=== PATIENT | female | born 1950 | race Caucasian/White ===

== ENCOUNTER 2016-11-20 07:03 | Inpatient (IN) | payer BC, OTHER ==
--- NOTE | 2016-11-16 17:50 | PREOPHP ---
DATE OF ADMISSION: 11/20/2016 This patient is being admitted electively by Dr. Primitivo Turk on 11/20/2016. HISTORY OF PRESENT ILLNESS: This 66-year-old female is having low back pain that is radiating down both legs, more on the right with some tingling. The patient was injured at work in 2004. She did undergo a laminectomy in 2009 and then a lumbar cyst was removed in 2014. She is being scheduled to have a spinal fusion because she continues to have pain. The patient was seen by me initially on 11/14/2016. At that time, she had an elevated blood pressure of 160/80. I did start the patient on Benicar 20 mg a day. The patient returned in followup on 11/16/2016. Her blood pressure was still elevated, so I increased the Benicar to 40 mg a day. CURRENT MEDICATIONS: Include the followin. Levothyroxine 150 mcg a day. 2. Tizanidine 4 mg 1 pill in the morning, 1/2 at bedtime. 3. Tramadol 50 mg as needed for pain. 4. Hydroxychloroquine 200 mg twice a day. 5. Mycophenolate 250 mg a day. 6. Atorvastatin 20 mg a day. 7. Azathioprine 50 mg a day. 8. Cymbalta 120 mg a day. 9. Estradiol 1 mg a day. 10. Gabapentin 600 mg in the morning, 800 mg at night. 11. Montelukast 10 mg a day. 12. [place] 10/325 as needed for pain. 13. Omeprazole 20 mg a day. 14. Benicar 40 mg a day PAST MEDICAL HISTORY: Remarkable for rheumatoid arthritis, hypokalemia, hyperlipidemia, fibromyalgia, hypertension. ALLERGIES: 1. LEVAQUIN. 2. PENICILLIN. PAST SURGICAL HISTORY: Appendectomy, right foot surgery, bilateral carpal tunnel syndrome, total abdominal hysterectomy, cervical spine surgery, lumbar spine surgery. FAMILY HISTORY: Both parents are . Mother of heart disease and father of mental illness. SOCIAL HISTORY: The patient is a former smoker, does not drink alcohol. She is disabled. REVIEW OF SYSTEMS: CONSTITUTIONAL: No chills, no weight gain, no loss of appetite, no fever, no weakness, no weight loss, no fatigue. OPHTHALMOLOGIC: Negative. EARS, NOSE AND THROAT: Negative. CARDIORESPIRATORY: She does have a slight cough. She denies any exertional chest pain, chest pressure. GASTROINTESTINAL: Negative. NEUROLOGIC: She does have some numbness and tingling in her right lower extremity. HEMATOLOGIC AND LYMPHATICS: Negative. UROLOGIC: Negative. She denies any prior history of anesthesia complications or bleeding disorder. PHYSICAL EXAMINATION: GENERAL: At this time reveals a well-developed female in no apparent distress. VITAL SIGNS: Temperature 96.9, blood pressure 160/80, pulse of 60. HEENT: Head normocephalic. Eyes: Extraocular muscles intact. Nose and mouth are normal. NECK: Supple. No neck vein distention. LUNGS: Clear to auscultation. HEART: Regular rhythm. No murmurs, gallops or rubs. ABDOMEN: Soft, nontender, no masses or megaly. EXTREMITIES: No peripheral edema. Pedal pulses were 2+ bilaterally. IMPRESSION: This patient is cleared for surgery. I will follow the patient along with you postoperatively. Dictated By: DEEJAY NGUYEN MD ND/LENORA Conf#: [id number] DID#: [id number] CC: PRIMITIVO TURK MD;*EndCC* MTDD
[~2016-11-20] VITALS: Ht 160 cm; Wt 71.0 kg
[2016-11-20] VITALS (26 sets, daily range): BP systolic 97–142; BP diastolic 42–83; PULSE 69–100; RESP 12–18; Ht 160 cm; Wt 71.0 kg
[2016-11-20] MEDS: LACTATED RINGER'S 1,000 ML IV* SCH (06:00)
[~2016-11-20 07:03] MED LIST: AMIL5TAB2 PO; ATOR20TA38 PO; AZAT50TA24 PO; DULO60CA6 PO; ESTR0.5T PO; FERR134T PO; GABA-526 PO; HYDR-762 PO; LEVO125T58 PO; MONT10TA24 PO; OMEP20CA16 PO; TIZA4TAB PO; TRAM50TA2 PO
[2016-11-20] MEDS ORDERED: SULF500T5 PO (07:39)
[2016-11-20] MEDS ORDERED: HYDR200T39 PO (07:40)
[2016-11-20] MEDS ORDERED: SULI200T3 PO (07:40)
[2016-11-20] MEDS ORDERED: MYCO250C3 PO (07:43)
[2016-11-20] MEDS ORDERED: BENA5TAB2 PO (07:45)
[2016-11-20] MEDS ORDERED: CEFAZOLIN 2 GM/50 ML (PMX) 50 ML IVPB SCH (08:30)
--- NOTE | 2016-11-20 09:19 | HPN ---
Date/Time of Note Date/Time of Note DATE: 11/20/16 TIME: 09:19 Interval H&P Admission Note Pt. seen H&P reviewed: No system changes EUGENIO TURK MD Nov 20, 2016 09:19
[2016-11-20] MEDS ORDERED: GELATIN SIZE 100 SPONGE ONE (09:32)
[2016-11-20] MEDS ORDERED: CEFAZOLIN 1 GM INJ ONE ×3 (09:33→15:22)
[2016-11-20] MEDS ORDERED: THROMBIN 5000 UNIT VIAL ONE (09:33)
[2016-11-20] MEDS ORDERED: HEPARIN 1000 UNITS/ML 10 ML INJ ONE (09:33)
[2016-11-20] MEDS ORDERED: BUPIVACAINE 0.25% (MPF) 10 ML 10 ML VIAL ONE (09:33)
[2016-11-20] MEDS ORDERED: MIDAZOLAM 1 MG/ML 2 ML INJ ONE (09:53)
[2016-11-20] MEDS ORDERED: SUCCINYLCHOLINE CHLORIDE 100 MG/5 ML SYG IV ONE (09:53)
[2016-11-20] MEDS ORDERED: FENTAnyl 50 MCG/ML VIAL ONE (09:53)
[2016-11-20] MEDS ORDERED: LIDOCAINE 2% (SDV) 5 ML INJ ONE (09:53)
[2016-11-20] MEDS ORDERED: PROPOFOL 20 ML ONE (09:53)
[2016-11-20] MEDS ORDERED: ROCURONIUM 50 MG INJ ONE ×2 (09:53→12:19)
[2016-11-20] MEDS ORDERED: ONDANSETRON 4 MG INJ ONE (10:39)
[2016-11-20] MEDS ORDERED: FAMOTIDINE 20 MG INJ ONE (10:39)
[2016-11-20] MEDS ORDERED: DEXAMETHASONE 4 MG/ML 1 ML INJ ONE (10:39)
[2016-11-20] MEDS ORDERED: EPHEDrine SULFATE 50 MG/5 ML SYG ONE ×2 (10:46→13:38)
[2016-11-20] MEDS ORDERED: THROMBIN(HUM PLAS)/FIBRINOG/CA 5 ML VIAL TOP ONE (13:34)
[2016-11-20] MEDS ORDERED: NEOSTIGMINE 3 MG/3 ML SYRINGE ONE (15:15)
[2016-11-20] MEDS ORDERED: GLYCOPYRROLATE 0.4 MG INJ ONE (15:15)
[2016-11-20] MEDS ORDERED: HYDROmorphONE 2 MG/ML SYG ONE (15:15)
[2016-11-20] MEDS ORDERED: DIPHENHYDRAMINE 50 MG INJ IV PRN (15:30)
[2016-11-20] MEDS ORDERED: MEPERIDINE 25 MG INJ IV PRN (15:30)
[2016-11-20] MEDS ORDERED: PROCHLORPERAZINE 10 MG INJ IV PRN (15:30)
[2016-11-20] MEDS ORDERED: HYDROmorphONE (0.2 MG/ML) 10ML SYG IV PRN ×3 (15:30)
[2016-11-20] MEDS ORDERED: FENTAnyl 50 MCG/ML VIAL IV PRN ×3 (15:30)
[2016-11-20] MEDS ORDERED: LABETALOL HCL 20MG INJ IV PRN (15:30)
[2016-11-20] MEDS ORDERED: ONDANSETRON 4 MG INJ IV PRN ×2 (15:30→17:00)
[2016-11-20] MEDS ORDERED: hydrALAzine 20 MG INJ IV PRN (15:30)
[2016-11-20] MEDS ORDERED: PHENYLephrine (100 MCG/ML) 5ML SYG ONE (16:06)
--- NOTE | 2016-11-20 16:41 | RADRPT ---
PROCEDURE: Intraoperative imaging of the lumbar spine with fluoroscopy. CLINICAL INDICATION: Back pain. Intraoperative. TECHNIQUE: 7 images of the lumbar spine were obtained in the operating room with an image intensif ier. No radiologist was in attendance. 53.8 seconds of fluoroscopy time was used. COMPARISON: Lumbar spine radiographs dated 11/03/2015. FINDINGS: For the purposes of this report, the last apparent true disc level is considered to be L5-S1. Based on this, the images demonstrate posterior fusion with pedicle screws and connecting rods at L4, L5, S1. IMPRESSION: 1. Intraoperative imaging of the lumbar spine. RPTAT: QQ .Saturnino Rodriguez MD, MD Date Time Electronically viewed and signed by .Saturnino Rodriguez MD, on 11/20/2016 16:41 .R/
[2016-11-20] MEDS ORDERED: AL HYDROX/MG HYDROX/SIMETH 30 ML CUP PO PRN (17:00)
[2016-11-20] MEDS ORDERED: ACETAMINOPHEN 325 MG TAB PO PRN (17:00)
[2016-11-20] MEDS ORDERED: DIPHENHYDRAMINE 50 MG CAP PO PRN (17:00)
[2016-11-20] MEDS ORDERED: NALOXONE (0.4 MG/ML) INJ IV PRN (17:00)
[2016-11-20] MEDS ORDERED: NACL 0.9% 3 ML SYG IV SCH (17:00)
[2016-11-20] MEDS ORDERED: HYDROmorphONE 0.2 MG/ML PCA IV SCH (17:00)
[2016-11-20] MEDS ORDERED: DIAZEPAM 5 MG TAB PO PRN (17:00)
[2016-11-20] MEDS ORDERED: HYDROCODONE/APAP (5/325) TAB PO PRN ×2 (17:00)
[2016-11-20] MEDS ORDERED: BETHANECHOL 25 MG TAB PO PRN (17:00)
[2016-11-20] MEDS ORDERED: TRIMETHOBENZAMIDE 100 MG/ML VIAL IM PRN (17:00)
[2016-11-20] MEDS ORDERED: DIAZEPAM 5 MG/ML SYG IM PRN (17:00)
[2016-11-20] MEDS ORDERED: CEPASTAT LOZENGE MT PRN (17:00)
[2016-11-20] MEDS ORDERED: ZOLPIDEM 5 MG TAB PO PRN (17:00)
[2016-11-20] MEDS ORDERED: PROCHLORPERAZINE 10 MG TAB PO PRN (17:00)
--- NOTE | 2016-11-20 17:02 | OPR ---
Date/Time of Note Date/Time of Note DATE: 11/20/16 TIME: 16:59 Operative Report Preoperative Diagnosis Status post multilevel decompressive laminectomy with foraminal stenosis at L4- 5 on the right and instability. Operation Performed Redo decompressive laminectomy at L4 and L5 Transforaminal lumbar interbody fusion at L4-5 and L5-S1 Revision of scar (12 cm) AP and lateral fluoroscopic imaging Intraoperative nerve monitoring (6 hours) Surgeon: EUGENIO TURK MD loan assistant: KEITH LEMA Anesthesia: general Anesthesiologist: DEMARIO SANTILLAN MD Estimated Blood Loss: other Specimens Disc material from L4-5 and L5-S1 Tubes/Drains 2 medium Hemovac drains employed Complications: None Pt Condition Post Procedure: stable Disposition: PACU Operative\Procedure Findings At surgery, foraminal stenosis at L4-5 with instability was confirmed EUGENIO TURK MD Nov 20, 2016 17:01
--- NOTE | 2016-11-20 19:14 | RADRPT ---
PROCEDURE: XR Chest. CLINICAL INDICATION: Shortness of breath. Postoperative evaluation. TECHNIQUE: A single portable view of the chest was obtained. COMPARISON: None FINDINGS: The cardiomediastinal silhouette is within normal limits. The lungs and pleural spaces are clear. Anterior fusion in the lower cervical spine is incompletely visualized. The soft tissues and osseou s structures are unremarkable. IMPRESSION: No acute cardiopulmonary disease. RPTAT: HPNM Physician Mer Date Time Electronically viewed and signed by Wander Jaime Physician on 11/20/2016 19:13 /
--- NOTE | 2016-11-20 19:15 | OPR ---
DATE OF OPERATION: 11/20/2016 PREOPERATIVE DIAGNOSES: Status post multilevel decompressive laminectomy with foraminal stenosis at L4-L5 on the right, and lumbar instability. POSTOPERATIVE DIAGNOSES: Status post multilevel decompressive laminectomy with foraminal stenosis a t L4-L5 on the right, and lumbar instability. OPERATION PERFORMED: 1. Redo decompressive laminectomy, transforaminal lumbar interbody fusion at L4-L5. 2. Transforaminal lumbar interbody fusion L5-S1. 3. Redo decompressive laminectomy at L4. 4. Redo decompressive laminectomy at L5. 5. Revision of scar (12 cm). 6. AP and lateral intraoperative fluoroscopy. 7. Intraoperative nerve monitoring (6 hours). SURGEON: Primitivo Waller MD OILER BANDER: Micki Dsouza PA-C ANESTHESIA: General endotracheal. ANESTHESIOLOGIST: Florina Cortés MD ESTIMATED BLOOD LOSS: 300 mL -- none replaced. DRAINS: Two medium Hemovac drains employed. COMPLICATIONS: None. PERTINENT HISTORY AND PHYSICAL: This is a 66-year-old female with severe back and lower extremity c omplaints bilaterally, right greater than left, which have been unrelieved by conservative managemen t. She has a pertinent prior history of having undergone a previous multilevel decompressive jj ctomy from L2-L5. Preoperative workup including an MRI of the lumbar spine demonstrated foraminal s tenosis at L4-L5 bilaterally, right greater than left, and translational instability at that level. Treatment options were discussed with the patient, she elected to proceed with surgery. OPERATIVE FINDINGS AT SURGERY: Multilevel spondylosis with multilevel foraminal stenosis at L4-L5 w as confirmed. The baseline intraoperative nerve monitoring revealed a decrease in the L4 potential on the right of 20%, the L5 potential on the right of 30%, the S1 potential on the left of 20%, and the S1 potential on the right of 60%. These all returned to normal at the completion of surgery. OPERATIVE PROCEDURE: With the patient in supine position after satisfactory induction of general en dotracheal anesthesia by Dr. Cortés, the patient was positioned on the Dewayne frame atop the OSI fluor oscopic table. All pressure points were carefully padded. The back was prepped and draped in the u sual sterile fashion. Athrombic pumps were applied to the legs below the knees to prevent venous st asis during and after the procedure. An indwelling Skelton catheter was also placed preoperatively to facilitate bladder drainage during and after the procedure. A 12 cm incision was carried out in the midline through the previous scar, through the skin and subc utaneous tissue to the fascia. Superficial retractors were placed and hemostasis secured with elect rocautery. Throughout the procedure, copious amounts of antibacterial irrigation solution were used to periodically irrigate the wound. The fascia was incised in midline with a hot knife and a disse ction carried out laterally to the facet joints from L4 to the sacrum. The deep retractors were indira obey and deep hemostasis secured with electrocautery. An intraoperative marker film was taken with t he Shashank clamp placed upon the sacrum, this was confirmed on the x-ray. The scar was peeled off of the medial aspect of the facets at L4-L5 and L5-S1 bilaterally, and a subtotal facetectomy carried out bilaterally. The operating microscope then moved into place. Attention was turned to the L5-S1 level where the S1 root was mobilized medially and protected with Renu nerve retractor using microdissection technique. A 15 blade knife was used to cut a rectan gular window in the annulus and posterior longitudinal ligament and multiple degenerative disk fragm ents were harvested with pituitary rongeurs. The Alphatec disk shelia were then inserted into the disk space and sequentially the 6, 7, and subsequently 8 mm shelia were used to abrade the vertebra l endplates. A rasp was then used to augment the removal of cartilaginous endplates at L5-S1. An 8 mm lordotic PEEK cage was then filled with a quarter of a small unit of BMP, and impacted into the disk space after multiple pieces of morselized bone were placed into the anterior aspect of the disk space. Attention was then turned to the L4-L5 level where the identical procedure was carried out. The pedicles of L4, L5 and S1 were then identified, and a 40 mm long x 5.5 mm wide variable angle Alphatec pedicle screw was placed into the pedicles of L4 bilaterally and L5 bilaterally using fluor oscopic guidance in the AP and lateral planes. A 6.5 mm wide x 30 mm long screw was placed into the S1 pedicles bilaterally again using fluoroscopic guidance. After the screws were inserted, they we re tested for electrical isolation and they were all adequate. A 70 mm lordotic ivet was then placed into the tulip heads of the screws after the Dewayne frame was lowered to its most inferior position . The S1 screws were tightened with locking caps, and then sequentially the L5 and L4 screws were t ightened after compressor was applied between the screws. The final AP and lateral fluoroscopic mian ges demonstrated satisfactory positioning of the interbody spacers and the hardware. The anesthesio logist was then asked to perform a Valsalva maneuver at 40 mmHg and no spinal fluid leakage was note d. The wound was then closed in layers over 2 medium Hemovac drains, one below the fascia and one a randolph the fascia using #1 Vicryl Stratafix sutures on the deep paralumbar musculature and deep fascia of the back, 2-0 Vicryl Stratafix sutures on the subcu tissue, and a 4-0 Vicryl subcuticular cosmet ic closing suture on the skin. Dermabond and sterile compressive dressings were applied. The patie nt having tolerated the procedure well was then returned to the supine position onto her bed and ext ubated by Dr. Cortés. She was transported to recovery room in satisfactory condition. At the conclus ion of the procedure, sponge, instrument, and needle counts were all correct. NEED FOR EDUCATION PROGRAM ASSOCIATE: During this spinal surgical procedure, my assistant softball coach was used to retrac t and protect the spinal nerves and dural sac. My assistant softball coach also employed the suction catheters to e vacuate blood from the surgical field to improve visualization of the neural structures. The assista nt was medically necessary to facilitate the completion of the surgery in a safe and expeditious man ner. [facility] [place] regulations, as well as hospital bylaws, preclude the use of non-licensed [facility] care personnel such as operating room technicians, to perform these functions. Throughout the procedure, neural monitoring was carried out by [facility] including EMG, SSEP and MEP monitoring of the L3, L4, L5, and S1 nerve roots bilaterally along with spinal cord potentials. These were interpreted by a neurologist employed by [employer]. Dictated By: PRIMITIVO WALLER MD TM/NTS Conf#: [id number] DID#: [id number] CC: REBEKA LEMA MD;*End*
[2016-11-20] MEDS: CEFAZOLIN 1 GM/50 ML (PMX) 50 ML IVPB SCH (20:07)
[2016-11-20] MEDS: DEXTROSE 5%-0.45% NACL 1,000 ML IV SCH (20:11)
--- NOTE | 2016-11-20 20:22 | CONS ---
DATE OF ADMISSION: 11/20/2016 DATE OF CONSULTATION: TYPE OF CONSULTATION: Medical. Thank you, Dr. Waller, for asking me to participate in medical management of this patient. REASON FOR CONSULTATION: To manage the patient's hypertension, hypothyroidism, rheumatoid arthritis , hyperlipidemia and fibromyalgia. HISTORY OF PRESENT ILLNESS: This 66-year-old female was having low back pain that radiated down bot h legs, more on the right, with some tingling. The patient was injured at work in 2004. She did un dergo a laminectomy in 2009, then a lumbar cyst was removed in 2014. The patient today underwent sp inal fusion at the L4-L5 level and L5-S1 level. There also was a redo of her microdiscectomy. The patient is postop now. She is awake and responsive. The patient denies any chest pain or shortness of breath. The patient denies numbness or tingling in her feet. She does have some incisional low back pain. The patient was seen by me last week in preoperative clearance. The patient's blood pr essure was elevated, and I did start her on Benicar 40 mg a day. The patient is taking the following medications: 1. Levothyroxine 150 mcg a day. 2. Tizanidine 4 mg in the morning and 2 mg at bedtime. 3. Tramadol 50 mg q.6 hours p.r.n. pain. 4. Hydrochloroquine 200 mg twice a day. 5. Mycophenolate 250 mg a day. 6. Atorvastatin 20 mg a day. 7. Azathioprine 50 mg a day. 8. Cymbalta 120 mg a day. 9. Estradiol 1 mg a day. 10. Gabapentin 600 mg in the morning, 800 mg at night. 11. Montelukast 10 mg a day. 12. [place] 10/325 for pain. 13. Omeprazole 20 mg a day. 14. Benicar 40 mg a day. PAST MEDICAL HISTORY: Remarkable for rheumatoid arthritis, hypokalemia, hyperlipidemia, fibromyalgi a and hypertension. ALLERGIES: 1. LEVAQUIN. 2. PENICILLIN. PAST SURGICAL HISTORY: Appendectomy, right foot surgery, bilateral carpal tunnel syndrome, total ab dominal hysterectomy, cervical spine surgery, lumbar spine surgery. FAMILY HISTORY: Both parents are . Mother of heart disease, and father of mental illness. SOCIAL HISTORY: The patient is a former smoker, does not drink alcohol. She is disabled. PHYSICAL EXAMINATION: GENERAL: At this time reveals a well-developed female. No apparent distress. VITAL SIGNS: Her temperature is 98, pulse of 81, respirations 18, blood pressure 132/62, O2 saturat ion 95% on 2 L nasal cannula. HEAD: Normocephalic. EYES: Extraocular muscles intact. NOSE AND MOUTH: Normal. NECK: Supple. No neck vein distention. LUNGS: Clear to auscultation. HEART: Regular rhythm. No murmurs, gallops or rubs. ABDOMEN: Soft, nontender. EXTREMITIES: No peripheral edema. IMPRESSION: This patient is stable after surgery today. Her blood pressure is normal. She has no chest pain or shortness of breath. I will follow the patient and manage her hypertension, rheumatoi d arthritis, hyperlipidemia, fibromyalgia. PLAN: 1. Resume some routine medications. 2. Check labs in the morning. 3. Postop lumbar spine surgery protocol. 4. I will follow the patient along with you. Dictated By: DEEJAY NGUYEN MD, ND/LENORA Conf#: [id number] DID#: [id number]
[2016-11-20] MEDS: HYDROXYCHLOROQUINE 200 MG TAB PO SCH (21:00)
[2016-11-20] MEDS: DULOXETINE 30 MG CAP DR PO SCH (21:01)
[2016-11-20] MEDS: RANITIDINE 150 MG TAB PO SCH (21:01)
[2016-11-20] MEDS: GABAPENTIN 300 MG CAP PO SCH (21:01)
[2016-11-20] MEDS: MONTELUKAST 10 MG TAB PO SCH (21:01)
[2016-11-21 00:02] VITALS: BP 143/65; RESP 18
[2016-11-21] MEDS: CEFAZOLIN 1 GM/50 ML (PMX) 50 ML IVPB SCH ×3 (01:40→11:52)
[2016-11-21] MEDS: DEXTROSE 5%-0.45% NACL 1,000 ML IV SCH ×2 (02:55→06:52)
[2016-11-21 05:05] LABS: ADD SCAN DIFF NO
[2016-11-21 05:11] LABS: BASOPHILS % 0.1 % (0.0-2.0); HEMATOCRIT 34.1 % (37.0-47.0); HEMOGLOBIN 10.6 g/dl (12.0-16.0); LYMPHOCYTES # 1.3 10^3/ul (0.8-2.9); LYMPHOCYTES % 8.7 % (15.0-51.0); MEAN CORPUSCULAR HEMOGLOBIN 29.4 pg (29.0-33.0); MEAN CORPUSCULAR HGB CONC 31.1 g/dl (32.0-37.0); MEAN CORPUSCULAR VOLUME 94.5 fl (82.0-101.0); MEAN PLATELET VOLUME 10.6 fl (7.4-10.4); MONOCYTE # 1.3 10^3/ul (0.3-0.9); MONOCYTES % 9.2 % (0.0-11.0); NEUTROPHIL # 11.9 10^3/ul (1.6-7.5); NEUTROPHILS % 81.6 % (39.0-77.0); PLATELET COUNT 219 10^3/UL (140-415); RED BLOOD COUNT 3.61 10^6/ul (4.20-5.40); RED CELL DISTRIBUTION WIDTH 13.3 % (11.5-14.5); WHITE BLOOD COUNT 14.5 10^3/ul (4.8-10.8)
[2016-11-21 05:20] VITALS: BP 146/76; PULSE 78; RESP 19
[2016-11-21] MEDS: LACTATED RINGER'S 1,000 ML IV* SCH (05:31)
[2016-11-21 05:40] LABS: ALBUMIN 3.2 g/dl (3.3-4.9); ALBUMIN/GLOBULIN RATIO 1.18; BILIRUBIN,INDIRECT 0.2 mg/dl (0-1.1); BILIRUBIN,TOTAL 0.2 mg/dl (0.2-1.3); CALCIUM 7.9 mg/dl (8.4-10.2); CREATININE 0.74 mg/dl (0.44-1.00); POTASSIUM 4.1 mmol/L (3.5-5.1); TOTAL PROTEIN 5.9 g/dl (6.1-8.1)
[2016-11-21] MEDS: PANTOPRAZOLE (EC) 40 MG TAB PO SCH (06:00)
[2016-11-21] MEDS: LEVOTHYROXINE 125 MCG TAB PO SCH (07:20)
--- NOTE | 2016-11-21 07:22 | PN ---
Date/Time of Note Date/Time of Note DATE: 11/21/16 TIME: 07:21 Assessment/Plan Lines/Catheters IV Catheter Type (from Nrs): Saline Lock Skelton in Place (from Nrs): Yes Subjective 24 Hr Interval Summary The patient is postop day #1 following a redo decompressive laminectomy at L4 and L5 and 2 level fusion from L4 to the sacrum. She is afebrile. Her Hemovac output was over 200 cc. Her a.m. lab work is normal exception of a postoperative anemia. I will recheck her labs tomorrow. Neurovascular structures are intact distally. She has a Skelton in place. Physical therapy will mobilize her as tolerated today. I will discontinue her Skelton catheter. Exam/Review of Systems Vital Signs Vitals Vital Signs Date Time Temp Pulse Resp B/P Pulse Ox O2 Delivery O2 Flow Rate FiO2 11/21/16 05:30 19 11/21/16 05:20 98.6 78 146/76 95 Nasal Cannula 2.0 Intake and Output 11/20/16 11/20/16 11/21/16 15:00 23:00 07:00 Intake Total 3800 ml 100 ml 1420 ml Output Total 785 ml 2075 ml Balance 3800 ml -685 ml -655 ml Results Result Diagram: 11/21/16 0420 11/21/16 0420 EUGENIO TURK MD Nov 21, 2016 07:22
[2016-11-21] MEDS ORDERED: BETHANECHOL 25 MG TAB PO PRN (08:00)
[2016-11-21 08:43] VITALS: BP 164/54; RESP 20
[2016-11-21] MEDS: AZATHIOPRINE 50 MG TAB PO SCH (09:00)
[2016-11-21] MEDS: MYCOPHENOLATE 250 MG CAP PO SCH (09:00)
[2016-11-21] MEDS: RANITIDINE 150 MG TAB PO SCH ×2 (09:00→21:32)
[2016-11-21] MEDS: DULOXETINE 30 MG CAP DR PO SCH ×2 (09:00→21:32)
[2016-11-21] MEDS: HYDROXYCHLOROQUINE 200 MG TAB PO SCH ×2 (09:00→21:32)
[2016-11-21] MEDS: GABAPENTIN 300 MG CAP PO SCH ×3 (09:00→21:32)
[2016-11-21] MEDS: ASCORBIC ACID 500 MG TAB PO SCH ×2 (09:00→21:32)
[2016-11-21] MEDS: ESTRADIOL 1 MG TAB PO SCH (09:00)
[2016-11-21] MEDS ORDERED: AMILORIDE 5 MG TAB PO SCH (09:00)
[2016-11-21] MEDS: FERROUS SULFATE (EC) 325 MG TAB PO SCH ×3 (09:00→21:32)
[2016-11-21] MEDS: DOCUSATE SODIUM 100 MG CAP PO SCH ×2 (09:00→21:32)
--- NOTE | 2016-11-21 13:50 | CONS ---
Date/Time of Note Date/Time of Note DATE: 11/21/16 TIME: 13:46 Assessment/Plan Assessment/Plan Chief Complaint/Hosp Course 1. she is one day post op a lumbar spine surgery . 2. BP is elevated . will start Valsartan and stop IV fluids . 3. continue current medication and PT Problems: Consultation Date/Type/Reason Admit Date/Time Nov 20, 2016 at 07:03 Initial Consult Date 24 HR Interval Summary Free Text/Dictation She is feeling better . she is one day post op a lumbar spine surgery . Constitutional: improved, no complaints Exam/Review of Systems Vital Signs Vitals Vital Signs Date Time Temp Pulse Resp B/P Pulse Ox O2 Delivery O2 Flow Rate FiO2 11/21/16 08:50 16 11/21/16 08:43 98.0 77 164/54 98 11/21/16 05:20 Nasal Cannula 2.0 Intake and Output 11/20/16 11/20/16 11/21/16 14:59 22:59 06:59 Intake Total 3800 ml 100 ml 1420 ml Output Total 785 ml 2075 ml Balance 3800 ml -685 ml -655 ml Exam Constitutional: alert, oriented, well developed Psych: nl mood/affect, no complaints Respiratory: clear to auscultation, normal air movement Cardiovascular: regular rate and rhythm Gastrointestinal: soft Musculoskeletal: nl extremities to inspection Results Result Diagram: 11/21/1641911/21/16 0420 Results 24 hrs Laboratory Tests Test 11/21/16 04:20 White Blood Count 14.5 H Red Blood Count 3.61 L Hemoglobin 10.6 L Hematocrit 34.1 L Mean Corpuscular Volume 94.5 Mean Corpuscular Hemoglobin 29.4 Mean Corpuscular Hemoglobin Concent 31.1 L Red Cell Distribution Width 13.3 Platelet Count 219 Mean Platelet Volume 10.6 H Neutrophils % 81.6 H Lymphocytes % 8.7 L Monocytes % 9.2 Eosinophils % 0.0 Basophils % 0.1 Nucleated Red Blood Cells % 0.0 Neutrophils # 11.9 H Lymphocytes # 1.3 Monocytes # 1.3 H Eosinophils # 0.0 Basophils # 0.0 Nucleated Red Blood Cells # 0.0 Sodium Level 136 Potassium Level 4.1 Chloride Level 102 Carbon Dioxide Level 31 Anion Gap 7 L Blood Urea Nitrogen 14 Creatinine 0.74 Glucose Level 132 Calcium Level 7.9 L Total Bilirubin 0.2 Direct Bilirubin 0.00 Indirect Bilirubin 0.2 Aspartate Amino Transf (AST/SGOT) 69 H Alanine Aminotransferase (ALT/SGPT) 29 Alkaline Phosphatase 66 Total Protein 5.9 L Albumin 3.2 L Globulin 2.70 Albumin/Globulin Ratio 1.18 Medications Medications Current Medications Lactated Ringer's 1,000 ml @ 25 mls/hr Q24H IV* ; Start 11/20/16 at 06:00 Dextrose/Sodium Chloride (D5-1/2ns) 1,000 ml @ 100 mls/hr Q10H IV Last administered on 11/21/16 06:52; Admin Dose 100 MLS/HR; Start 11/20/16 at 16:55 Acetaminophen/ Hydrocodone Bitart ([place] (5/325)) 1 tab Q4H PRN PO PAIN LEVEL 1 -5; Start 11/20/16 at 17:00 Acetaminophen/ Hydrocodone Bitart ([place] (5/325)) 2 tab Q4H PRN PO PAIN LEVEL 6 -10 Last administered on 11/21/16 10:31; Admin Dose 2 TAB; Start 11/20/16 at 17 :00 Zolpidem Tartrate (Ambien) 5 mg HS PRN PO INSOMNIA; Start 11/20/16 at 17:00 Prochlorperazine (Compazine) 10 mg Q4H PRN PO NAUSEA AND/OR VOMITING Last administered on 11/21/16 08:45; Admin Dose 10 MG; Start 11/20/16 at 17:00 Trimethobenzamide HCl (Tigan) 200 mg Q4H PRN IM NAUSEA AND/OR VOMITING; Start 11/20/16 at 17:00 Ondansetron HCl (Zofran Inj) 4 mg Q6H PRN IV NAUSEA AND/OR VOMITING Last administered on 11/21/16 03:54; Admin Dose 4 MG; Start 11/20/16 at 17:00 Al Hydrox/Mg Hydrox/Simethicone (Mag-Al Plus) 15 ml Q4H PRN PO CONSTIPATION; Start 11/20/16 at 17:00 Docusate Sodium (Colace) 100 mg BID PO ; Start 11/21/16 at 09:00 Acetaminophen (Tylenol Tab) 650 mg Q4H PRN PO TEMP GREATER THAN 101F OR [place]; Start 11/20/16 at 17:00 Ascorbic Acid (Vitamin C) 1,000 mg BID PO ; Start 11/21/16 at 09:00 Ferrous Sulfate (Ferrous Sulfate (Ec)) 325 mg TID PO ; Start 11/21/16 at 09:00 Ranitidine HCl (Zantac) 150 mg BID PO Last administered on 11/20/16 21:01; Admin Dose 150 MG; Start 11/20/16 at 21:00 Diazepam (Valium) 5 mg Q4H PRN PO MUSCLE SPASMS; Start 11/20/16 at 17:00 Diazepam (Valium) 5 mg Q4H PRN IM MUSCLE SPASMS; Start 11/20/16 at 17:00 Phenol (Cepastat Lozenge) 1 lozenge PRN PRN MT SORE THROAT Last administered on 11/21/16 01:40; Admin Dose 1 LOZENGE; Start 11/20/16 at 17:00 Bethanechol Chloride (Urecholine) 25 mg PRN PRN PO UNABLE TO VOID Last administered on 11/21/16 11:52; Admin Dose 25 MG; Start 11/20/16 at 17:00 Diphenhydramine HCl (Benadryl) 50 mg Q6H PRN PO PRURITUS; Start 11/20/16 at 17: 00 Hydromorphone HCl (Dilaudid HAT CHECKER) Q4PCA IV Last administered on 11/20/16 17:26 ; Admin Dose 6 MG; Start 11/20/16 at 17:00 Naloxone HCl (Narcan) 0.2 mg Q2M PRN IV RR 8 BREATHS/MIN OR LESS; Start at 17:00 Atorvastatin Calcium (Lipitor) 20 mg DAILY@21 PO ; Start 11/21/16 at 21:00 Azathioprine (Imuran) 50 mg DAILY PO ; Start 11/21/16 at 09:00 Duloxetine HCl (Cymbalta) 60 mg BID PO Last administered on 11/20/16 21:01; Admin Dose 60 MG; Start 11/20/16 at 21:00 Gabapentin (Neurontin) 600 mg TID PO Last administered on 11/20/16 21:01; Admin Dose 600 MG; Start 11/20/16 at 21:00 Hydroxychloroquine Sulfate (Plaquenil) 200 mg BID PO ; Start 4/10/17 at 21:00 Montelukast Sodium (Singulair) 10 mg QHS PO Last administered on 11/20/16t 21: 01; Admin Dose 10 MG; Start 11/20/16 at 21:00 Mycophenolate Mofetil (Cellcept) 250 mg DAILY PO ; Start 11/21/16 at 09:00 Estradiol (Estrace) 1 mg DAILY PO ; Start 11/21/16 at 09:00 Pantoprazole (Protonix Tab) 40 mg DAILY@06 PO ; Start 11/21/16 at 06:00 DEEJAY NGUYEN MD Nov 21, 2016 13:50
[2016-11-21] MEDS ORDERED: VALSARTAN 80 MG TAB PO SCH (14:00)
[2016-11-21 14:43] LABS: ADD UMIC YES; URINE BILIRUBIN (Dip) NEGATIVE (NEGATIVE); URINE BLOOD (Dip) 1+ (NEGATIVE); URINE COLOR LT. YELLOW (YELLOW); URINE GLUCOSE (Dip) NEGATIVE (NEGATIVE); URINE KETONES (Dip) NEGATIVE (NEGATIVE); URINE LEUKOCYTE ESTERASE (Dip) NEGATIVE (NEGATIVE); URINE NITRITE (Dip) NEGATIVE (NEGATIVE); URINE TOTAL PROTEIN (Dip) NEGATIVE (NEGATIVE); URINE UROBILINOGEN (Dip) 0.2 E.U./dL (0.1-1.0)
[2016-11-21 15:37] LABS: BACTERIA,URINE OCCASIONAL; MUCUS,URINE FEW; SQUAMOUS EPITHELIAL CELL,UR FEW
[2016-11-21 20:19] VITALS: BP 155/70; RESP 20
[2016-11-21] MEDS ORDERED: ATORVASTATIN 20 MG TAB PO SCH (21:00)
[2016-11-21] MEDS: MONTELUKAST 10 MG TAB PO SCH (21:32)
[2016-11-22 05:00] VITALS: BP 140/65; PULSE 80; RESP 19
[2016-11-22 05:00] LABS: ADD SCAN DIFF NO
[2016-11-22 05:04] LABS: BASOPHIL # 0.1 10^3/ul (0.0-0.1); BASOPHILS % 0.4 % (0.0-2.0); EOSINOPHILS # 0.1 10^3/ul (0.0-0.5); EOSINOPHILS % 0.7 % (0.0-7.0); HEMOGLOBIN 10.3 g/dl (12.0-16.0); LYMPHOCYTES # 1.8 10^3/ul (0.8-2.9); LYMPHOCYTES % 14.6 % (15.0-51.0); MEAN CORPUSCULAR HEMOGLOBIN 29.5 pg (29.0-33.0); MEAN CORPUSCULAR HGB CONC 31.2 g/dl (32.0-37.0); MEAN CORPUSCULAR VOLUME 94.6 fl (82.0-101.0); MEAN PLATELET VOLUME 10.8 fl (7.4-10.4); MONOCYTE # 1.3 10^3/ul (0.3-0.9); MONOCYTES % 10.1 % (0.0-11.0); NEUTROPHIL # 9.3 10^3/ul (1.6-7.5); PLATELET COUNT 215 10^3/UL (140-415); RED BLOOD COUNT 3.49 10^6/ul (4.20-5.40); RED CELL DISTRIBUTION WIDTH 13.4 % (11.5-14.5); WHITE BLOOD COUNT 12.5 10^3/ul (4.8-10.8)
[2016-11-22 05:24] LABS: ALBUMIN 3.2 g/dl (3.3-4.9); POTASSIUM 3.2 mmol/L (3.5-5.1)
[2016-11-22 05:26] LABS: CREATININE 0.6 mg/dl (0.44-1.00)
[2016-11-22 05:27] LABS: ALBUMIN/GLOBULIN RATIO 1.06; BILIRUBIN,INDIRECT 0.2 mg/dl (0-1.1); BILIRUBIN,TOTAL 0.2 mg/dl (0.2-1.3); CALCIUM 8.6 mg/dl (8.4-10.2); TOTAL PROTEIN 6.2 g/dl (6.1-8.1)
[2016-11-22] MEDS: LACTATED RINGER'S 1,000 ML IV* SCH (05:40)
[2016-11-22] MEDS: PANTOPRAZOLE (EC) 40 MG TAB PO SCH (05:40)
--- NOTE | 2016-11-22 07:02 | PN ---
Date/Time of Note Date/Time of Note DATE: 11/22/16 TIME: 07:01 Assessment/Plan Lines/Catheters IV Catheter Type (from Nrsg): Saline Lock Skelton in Place (from Nrsg): No Subjective 24 Hr Interval Summary The patient is postop day #2 following a multilevel decompressive laminectomy and fusion from L4 to the sacrum. She is resting comfortably. Neurovascular structures are intact distally. Her Hemovac is 80 cc this morning. I will monitor it closely and discontinue the Hemovac when the output diminishes. Exam/Review of Systems Vital Signs Vitals Vital Signs Date Time Temp Pulse Resp B/P Pulse Ox O2 Delivery O2 Flow Rate FiO2 11/22/16 05:00 98.7 80 19 140/65 95 Nasal Cannula 2.0 Intake and Output 11/21/16 11/21/16 11/22/16 15:00 23:00 07:00 Intake Total 550 ml 840 ml 600 ml Output Total 850 ml 1680 ml Balance 550 ml -10 ml -1080 ml Results Result Diagram: 11/22/16 0422 11/22/16 0422 EUGENIO TURK MD Nov 22, 2016 07:02
[2016-11-22 07:59] VITALS: BP 158/66; RESP 15
[2016-11-22] MEDS: ESTRADIOL 1 MG TAB PO SCH (08:21)
[2016-11-22] MEDS: MYCOPHENOLATE 250 MG CAP PO SCH (08:21)
[2016-11-22] MEDS: LEVOTHYROXINE 125 MCG TAB PO SCH (08:21)
[2016-11-22] MEDS: FERROUS SULFATE (EC) 325 MG TAB PO SCH ×2 (08:22→14:10)
[2016-11-22] MEDS: RANITIDINE 150 MG TAB PO SCH (08:22)
[2016-11-22] MEDS: GABAPENTIN 300 MG CAP PO SCH ×2 (08:22→14:10)
[2016-11-22] MEDS: DOCUSATE SODIUM 100 MG CAP PO SCH (08:22)
[2016-11-22] MEDS: DULOXETINE 30 MG CAP DR PO SCH (08:22)
[2016-11-22] MEDS: HYDROXYCHLOROQUINE 200 MG TAB PO SCH (08:23)
[2016-11-22] MEDS: ASCORBIC ACID 500 MG TAB PO SCH (08:23)
[2016-11-22] MEDS ORDERED: POTASSIUM CHLORIDE (SR) 20 MEQ TAB PO ONE (09:00)
[2016-11-22] MEDS ORDERED: VALSARTAN 80 MG TAB PO SCH (09:00)
[2016-11-22] MEDS ORDERED: ALBUTEROL 18 GM INHALER INH PRN (09:00)
[2016-11-22] MEDS ORDERED: SALMETEROL/FLUTICASONE 250/50 INHA INH SCH (09:00)
--- NOTE | 2016-11-22 09:00 | CONS ---
Date/Time of Note Date/Time of Note DATE: 11/22/16 TIME: 08:58 Assessment/Plan Assessment/Plan Chief Complaint/Hosp Course 1. she is two days post op a lumbar spine surgery . 2. BP is elevated . will increase Valsartan and stop IV fluids . 3. continue current medication and PT 4. hypokalemia , potassium given . Problems: Consultation Date/Type/Reason Admit Date/Time Nov 20, 2016 at 07:03 24 HR Interval Summary Free Text/Dictation She is felling better . She is wheezing . Constitutional: improved, no complaints Exam/Review of Systems Vital Signs Vitals Vital Signs Date Time Temp Pulse Resp B/P Pulse Ox O2 Delivery O2 Flow Rate FiO2 11/22/16 07:59 98.7 76 15 158/66 100 11/22/16 05:00 Nasal Cannula 2.0 Intake and Output 11/21/16 11/21/16 11/22/16 15:00 23:00 07:00 Intake Total 550 ml 840 ml 600 ml Output Total 850 ml 1680 ml Balance 550 ml -10 ml -1080 ml Exam Constitutional: alert, oriented, well developed Psych: nl mood/affect, no complaints Respiratory: wheezing Cardiovascular: regular rate and rhythm Gastrointestinal: soft Musculoskeletal: nl extremities to inspection Results Result Diagram: 11/22/16 0422 11/22/16 0422 Results 24 hrs Laboratory Tests Test 11/21/16 12:00 11/22/16 04:22 Urine Color LT. YELLOW Urine Clarity CLEAR Urine pH 6.0 Urine Specific [place] 1.020 Urine Ketones NEGATIVE Urine Nitrite NEGATIVE Urine Bilirubin NEGATIVE Urine Urobilinogen 0.2 E.U./dL Urine Leukocyte Esterase NEGATIVE Urine Microscopic RBC 5-10 Urine Microscopic WBC 2-5 Urine Squamous Epithelial Cells FEW Urine Bacteria OCCASIONAL Urine Mucus FEW Urine Hemoglobin 1+ H Urine Glucose NEGATIVE Urine Total Protein NEGATIVE White Blood Count 12.5 H Red Blood Count 3.49 L Hemoglobin 10.3 L Hematocrit 33.0 L Mean Corpuscular Volume 94.6 Mean Corpuscular Hemoglobin 29.5 Mean Corpuscular Hemoglobin Concent 31.2 L Red Cell Distribution Width 13.4 Platelet Count 215 Mean Platelet Volume 10.8 H Neutrophils % 74.0 Lymphocytes % 14.6 L Monocytes % 10.1 Eosinophils % 0.7 Basophils % 0.4 Nucleated Red Blood Cells % 0.0 Neutrophils # 9.3 H Lymphocytes # 1.8 Monocytes # 1.3 H Eosinophils # 0.1 Basophils # 0.1 Nucleated Red Blood Cells # 0.0 Sodium Level 140 Potassium Level 3.2 L Chloride Level 99 Carbon Dioxide Level 33 H Anion Gap 11 Blood Urea Nitrogen 9 Creatinine 0.60 Glucose Level 135 Calcium Level 8.6 Total Bilirubin 0.2 Direct Bilirubin 0.00 Indirect Bilirubin 0.2 Aspartate Amino Transf (AST/SGOT) 60 H Alanine Aminotransferase (ALT/SGPT) 25 Alkaline Phosphatase 67 Total Protein 6.2 Albumin 3.2 L Globulin 3.00 Albumin/Globulin Ratio 1.06 Medications Medications Current Medications Lactated Ringer's (Lr) 1,000 ml @ 25 mls/hr Q24H IV* ; Start 11/20/16 at 06:00 Acetaminophen/ Hydrocodone Bitart ([place] (5/325)) 1 tab Q4H PRN PO PAIN LEVEL 1 -5; Start 11/20/16 at 17:00 Acetaminophen/ Hydrocodone Bitart ([place] (5/325)) 2 tab Q4H PRN PO PAIN LEVEL 6 -10 Last administered on 11/21/16 10:31; Admin Dose 2 TAB; Start 11/20/16 at 17 :00 Zolpidem Tartrate (Ambien) 5 mg HS PRN PO INSOMNIA; Start 11/20/16 at 17:00 Prochlorperazine (Compazine) 10 mg Q4H PRN PO NAUSEA AND/OR VOMITING Last administered on 11/21/16 08:45; Admin Dose 10 MG; Start 11/20/16 at 17:00 Trimethobenzamide HCl (Tigan) 200 mg Q4H PRN IM NAUSEA AND/OR VOMITING; Start 11/20/16 at 17:00 Ondansetron HCl (Zofran Inj) 4 mg Q6H PRN IV NAUSEA AND/OR VOMITING Last administered on 11/21/16 03:54; Admin Dose 4 MG; Start 11/20/16 at 17:00 Al Hydrox/Mg Hydrox/Simethicone (Mag-Al Plus) 15 ml Q4H PRN PO CONSTIPATION; Start 11/20/16 at 17:00 Docusate Sodium (Colace) 100 mg BID PO Last administered on 11/22/16 08:22; Admin Dose 100 MG; Start 11/21/16 at 09:00 Acetaminophen (Tylenol Tab) 650 mg Q4H PRN PO TEMP GREATER THAN 101F OR [place]; Start 11/20/16 at 17:00 Ascorbic Acid (Vitamin C) 1,000 mg BID PO Last administered on 11/22/16 08:23 ; Admin Dose 1,000 MG; Start 11/21/16 at 09:00 Ferrous Sulfate (Ferrous Sulfate (Ec)) 325 mg TID PO Last administered on 08:22; Admin Dose 325 MG; Start 11/21/16 at 09:00 Ranitidine HCl (Zantac) 150 mg BID PO Last administered on 11/22/16 08:22; Admin Dose 150 MG; Start 11/20/16 at 21:00 Diazepam (Valium) 5 mg Q4H PRN PO MUSCLE SPASMS; Start 11/20/16 at 17:00 Diazepam (Valium) 5 mg Q4H PRN IM MUSCLE SPASMS; Start 11/20/16 at 17:00 Phenol (Cepastat Lozenge) 1 lozenge PRN PRN MT SORE THROAT Last administered on 11/21/16 01:40; Admin Dose 1 LOZENGE; Start 11/20/16 at 17:00 Bethanechol Chloride (Urecholine) 25 mg PRN PRN PO UNABLE TO VOID Last administered on 11/21/16 11:52; Admin Dose 25 MG; Start 11/20/16 at 17:00 Diphenhydramine HCl (Benadryl) 50 mg Q6H PRN PO PRURITUS; Start 11/20/16 at 17: 00 Hydromorphone HCl (Dilaudid PMO LEAD) Q4PCA IV Last administered on 11/20/16 17:26 ; Admin Dose 6 MG; Start 11/20/16 at 17:00 Naloxone HCl (Narcan) 0.2 mg Q2M PRN IV RR 8 BREATHS/MIN OR LESS; Start at 17:00 Atorvastatin Calcium (Lipitor) 20 mg DAILY@21 PO Last administered on 21:32; Admin Dose 20 MG; Start 11/21/16 at 21:00 Azathioprine (Imuran) 50 mg DAILY PO ; Start 11/21/16 at 09:00 Duloxetine HCl (Cymbalta) 60 mg BID PO Last administered on 11/22/16 08:22; Admin Dose 60 MG; Start 11/20/16 at 21:00 Gabapentin (Neurontin) 600 mg TID PO Last administered on 11/22/16 08:22; Admin Dose 600 MG; Start 11/20/16 at 21:00 Hydroxychloroquine Sulfate (Plaquenil) 200 mg BID PO Last administered on 08:23; Admin Dose 200 MG; Start 11/20/16 at 21:00 Montelukast Sodium (Singulair) 10 mg QHS PO Last administered on 11/21/16 21: 32; Admin Dose 10 MG; Start 11/20/16 at 21:00 Mycophenolate Mofetil (Cellcept) 250 mg DAILY PO Last administered on 08:21; Admin Dose 250 MG; Start 11/21/16 at 09:00 Estradiol (Estrace) 1 mg DAILY PO Last administered on 11/22/16 08:21; Admin Dose 1 MG; Start 11/21/16 at 09:00 Pantoprazole (Protonix Tab) 40 mg DAILY@06 PO Last administered on 11/22/16 05 :40; Admin Dose 40 MG; Start 11/21/16 at 06:00 Valsartan (Diovan) 160 mg DAILY PO ; Start 11/22/16 at 09:00; Status UNV Potassium Chloride (Klor-Con 20) 40 meq ONCE ONCE PO ; Start 11/22/16 at 09:00 ; Stop 11/22/16 at 09:01; Status UNV DEEJAY NGUYEN MD Nov 22, 2016 09:00
[2016-11-22] MEDS: AZATHIOPRINE 50 MG TAB PO SCH (09:36)
== END 2016-11-22 18:15 | disposition home or self-care (01) | DRG 460 ==
LOC: REC 07:03 → MS1 18:43
PROVIDERS: ADMIT Orthopaedic Surgery; ATTEND Orthopaedic Surgery
PROC: 3E0U0GB Introduction of Recombinant Bone Morphogenetic Protein into Joints, Open Approach (ICD-10-PCS; 2016-11-20)
PROC: 0SG10AJ Fusion of 2 or more Lumbar Vertebral Joints with Interbody Fusion Device, Posterior Approach, Anterior Column, Open Approach (ICD-10-PCS; principal; 2016-11-20 09:30)
DX: M48.07 Spinal stenosis, lumbosacral region (principal); I10 Essential (primary) hypertension; M53.2X6 Spinal instabilities, lumbar region; M06.9 Rheumatoid arthritis, unspecified; E87.6 Hypokalemia; E78.5 Hyperlipidemia, unspecified; M79.7 Fibromyalgia; M54.16 Radiculopathy, lumbar region
CPT/HCPCS: 71010; 72114; 80053; 81001; 81003; 85025; 86850; 86900; 86901; 86920; 87086; 97116; 97162; 97530; C9250; J0330; J0690; J1100; J1170; J1644; J2250; J2370; J2405; J2710; J3010; J7042; J7120; J7500; J7517; L8699

== ENCOUNTER 2018-02-04 05:26 | Inpatient (IN) | END 2018-02-05 13:55 | disposition home or self-care (01) | DRG 517 ==